=== PATIENT | male | born 1995 | race Two or more races ===

== ENCOUNTER → 2017-02-02 | Outpatient (CLI) | payer OTHER ==
--- NOTE | 2017-02-02 13:43 | RAD ---
Examination: X-rays of the right hand. Clinical history: Right hand pain, fell a year ago, still having hand pain. Technique: Three views of the right hand were obtained. Comparison: None available. Findings: No acute fracture, dislocation, or destructive bony lesion is noted. No soft tissue abnormality is noted. Impression: 1. Negative x-rays of the right hand. Reported By:
== END ==
LOC: RAD 09:48
PROVIDERS: ATTEND Specialist
DX: M79.641 Pain in right hand (principal)
CPT/HCPCS: 73130